=== PATIENT | male | born 1945 | race Two or more races ===

== ENCOUNTER 2018-04-01 10:50 | Outpatient (CLI) | payer OTHER | END 2018-04-01 11:12 | disposition home or self-care (01) | LOC: NUCLEAR 10:50 | DX: G89.4 Chronic pain syndrome (principal); J43.9 Emphysema, unspecified; Z87.891 Personal history of nicotine dependence; Z85.048 Personal history of other malignant neoplasm of rectum, rectosigmoid junction, and anus; I73.9 Peripheral vascular disease, unspecified | CPT/HCPCS: 78306; 93922; 93925; A9503 ==

== ENCOUNTER → 2018-04-02 | Outpatient (CLI) | payer OTHER | END | disposition home or self-care (01) | LOC: NUCLEAR 10:00 | DX: I73.9 Peripheral vascular disease, unspecified (principal); I70.219 Atherosclerosis of native arteries of extremities with intermittent claudication, unspecified extremity; R26.2 Difficulty in walking, not elsewhere classified; I87.2 Venous insufficiency (chronic) (peripheral) ==

== ENCOUNTER 2021-06-22 09:13 | Outpatient (CLI) | payer OTHER | END 2021-06-22 09:17 | disposition home or self-care (01) | LOC: NUCLEAR 09:13 | PROVIDERS: ATTEND Internal Medicine Cardiovascular Disease | DX: I87.2 Venous insufficiency (chronic) (peripheral) (principal) ==

== ENCOUNTER 2021-06-25 10:29 | Outpatient (CLI) | payer OTHER | END 2021-06-25 10:31 | disposition home or self-care (01) | LOC: NUCLEAR 10:29 | PROVIDERS: ATTEND Internal Medicine Cardiovascular Disease | DX: I70.213 Atherosclerosis of native arteries of extremities with intermittent claudication, bilateral legs (principal) ==

== ENCOUNTER 2021-06-27 12:22 | Outpatient (CLI) | payer OTHER | END 2021-06-27 12:30 | disposition home or self-care (01) | LOC: SONOGRAMA 12:22 | PROVIDERS: ATTEND General Practice | DX: M25.512 Pain in left shoulder (principal) ==

== ENCOUNTER → 2021-10-01 | Outpatient (CLI) | payer OTHER | END | disposition home or self-care (01) | LOC: SONOGRAMA 07:46 | PROVIDERS: ATTEND Internal Medicine Nephrology | DX: N18.31 Chronic kidney disease, stage 3a (principal); R10.9 Unspecified abdominal pain; E11.22 Type 2 diabetes mellitus with diabetic chronic kidney disease; I10 Essential (primary) hypertension ==

== ENCOUNTER 2022-08-19 13:01 | Outpatient (CLI) | payer OTHER | END 2022-08-19 13:15 | disposition home or self-care (01) | LOC: RAD 13:01 | PROVIDERS: ATTEND Physical Medicine & Rehabilitation | DX: M54.2 Cervicalgia (principal); M54.59 Other low back pain; M16.12 Unilateral primary osteoarthritis, left hip; M91.12 Juvenile osteochondrosis of head of femur [Legg-Calve-Perthes], left leg ==

== ENCOUNTER 2022-10-25 14:19 | Outpatient (CLI) | payer OTHER | END 2022-10-25 14:29 | disposition home or self-care (01) | LOC: SONOGRAMA 14:19 | PROVIDERS: ATTEND Urology | DX: R33.9 Retention of urine, unspecified (principal); R31.1 Benign essential microscopic hematuria ==

== ENCOUNTER 2023-05-14 09:21 | Outpatient (CLI) | payer OTHER | END 2023-05-14 09:30 | disposition home or self-care (01) | LOC: TOM 09:21 | PROVIDERS: ATTEND General Practice | DX: J43.9 Emphysema, unspecified (principal); R06.02 Shortness of breath ==

== ENCOUNTER 2023-07-09 08:36 | Outpatient (CLI) | payer OTHER | END 2023-07-09 08:37 | disposition home or self-care (01) | LOC: NUCLEAR 08:36 | PROVIDERS: ATTEND General Practice | DX: I73.9 Peripheral vascular disease, unspecified (principal); R60.0 Localized edema ==

== ENCOUNTER 2023-07-16 09:07 | Outpatient (CLI) | payer OTHER | END 2023-07-16 09:08 | disposition home or self-care (01) | LOC: NUCLEAR 09:07 | PROVIDERS: ATTEND General Practice | DX: I73.9 Peripheral vascular disease, unspecified (principal); R60.0 Localized edema ==